=== PATIENT | male | born 1970 | race Caucasian/White ===

== ENCOUNTER 2020-06-26 21:59 | Emergency (ER) | payer OTHER ==
[~2020-06-26] VITALS: Ht 172.7 cm; Wt 73.9 kg
--- NOTE | 2020-06-26 22:05 | NUR ---
NICOLE 89 FROM HOME FOR POSSIBLE METH USE. PT CONFUSED AND UNABLE TO PROVIDE ANY INFO ON TRIAGE. RESPONSIVE TO HIS NAME. CONSTANTLY TALKING TO SELF. PLACED IN ER BED #12. ATTACHED TO THE MONITOR. WARM BLANKET PROVIDED FOR COMFORT. WILL CONTINUE TO MONITOR THE PATIENT.
[2020-06-26] MEDS ORDERED: HALOPERIDOL LACTATE INJ 5 MG/ML VIAL ONE (22:19)
[2020-06-26] MEDS ORDERED: diphenhydrAMINE HCL 50 MG/ML VIAL ONE (22:19)
[2020-06-26] MEDS ORDERED: LORAZEPAM INJ 2 MG/ML VIAL ONE (22:27)
[2020-06-26] MEDS ORDERED: diphenhydrAMINE HCL 50 MG/ML VIAL IV ONE (22:30)
[2020-06-26] MEDS ORDERED: HALOPERIDOL LACTATE INJ 5 MG/ML VIAL IM ONE (22:30)
[2020-06-26] MEDS ORDERED: IV NS 0.9% 1,000 ML BAG IV ONE (22:30)
[2020-06-26] MEDS ORDERED: LORAZEPAM INJ 2 MG/ML VIAL IVP ONE (22:30)
[2020-06-26] MEDS ORDERED: HALOPERIDOL LACTATE INJ 5 MG/ML VIAL IVP ONE (22:30)
[2020-06-26] MEDS ORDERED: diphenhydrAMINE HCL 50 MG/ML VIAL IM ONE (22:30)
[2020-06-26 22:35] LABS: BASOPHILS # (AUTO) 0.1 /CMM (0.0-0.2); BASOPHILS % (AUTO) 0.4 % (0.0-2.0); EOSINOPHILS % (AUTO) 0.1 % (0.0-6.0); HEMATOCRIT 50 % (39-51); HEMOGLOBIN 17.6 g/dL (13.5-17.5); LYMPHOCYTES # (AUTO) 2.1 /CMM (0.8-4.8); LYMPHOCYTES % (AUTO) 14.3 % (20.0-44.0); MEAN CORPUSCULAR HGB CONC 35 g/dl (31.0-36.0); MEAN CORPUSCULAR VOLUME 94 fL (80-96); MONOCYTES # (AUTO) 1.2 /CMM (0.1-1.30); MONOCYTES % (AUTO) 7.7 % (2.0-12.0); NEUTROPHILS # (AUTO) 11.7 /CMM (1.8-8.9); NEUTROPHILS % (AUTO) 77.5 % (43.0-81.0); PLATELET COUNT (AUTO) 243 /CMM (150-450); RED BLOOD CELL COUNT(AUTO) 5.33 MIL/uL (4.5-6.0)
--- NOTE | 2020-06-26 22:39 | NUR ---
SISTER, CURTIS: [phone]
[2020-06-26 22:45] LABS: CALCIUM, SERUM 10.3 mg/dL (8.5-10.1); CARBON DIOXIDE 16 mmol/L (21-32); CHLORIDE 102 mmol/L (98-107); CREATININE 1.6 mg/dL (0.6-1.3); GLUCOSE 128 mg/dL (74-106); POTASSIUM 3.3 mmol/L (3.5-5.1); SODIUM SERUM 139 mmol/L (136-145); UREA NITROGEN, BLOOD 21 mg/dL (7-18)
--- NOTE | 2020-06-26 22:49 | NUR ---
URINE COLLECTED AND SENT TO LAB
[2020-06-26 22:51] LABS: BILIRUBIN,URINE Negative (NEGATIVE); COLOR,URINE YELLOW (YELLOW); LEUKOCYTE ESTERASE ,URINE Negative (NEGATIVE); NITRITE, URINE Negative (NEGATIVE); PROTEIN,URINE 100 mg/dl (NEGATIVE); UGLUCOSE Negative (NEGATIVE)
[2020-06-26 22:55] LABS: ALANINE AMINOTRANSFERASE 33 U/L (12-78); ALBUMIN 4.4 g/dL (3.4-5.0); ALCOHOL, BLOOD < 3 mg/dL (0-0); ALKALINE PHOSPHATASE 101 U/L (46-116); ASPARTATE AMINOTRANSFERASE 38 U/L (15-37); BILIRUBIN,DIRECT 0.3 mg/dL (0.0-0.2); BILIRUBIN,TOTAL 1.6 mg/dL (0.2-1.0); TOTAL PROTEIN, SERUM 7.8 g/dL (6.4-8.2)
[2020-06-26 22:57] LABS: ACETAMINOPHEN 0 ug/ml (10-30)
[2020-06-26 23:13] LABS: RBC,URINE 21-50 /HPF (0-2); WBC,URINE 0-2 /HPF (0-3)
[2020-06-26 23:14] LABS: BACTERIA,URINE None seen /HPF (None Seen); MUCUS,URINE Few /LPF (None Seen); SQUAMOUS EPITHELIAL CELL,UR Few /HPF (None Seen); URINE AMORPHOUS URATE Few /HPF (None Seen)
[2020-06-26 23:42] LABS: THYROID STIMULATING HORMONE 1.405 uIU/mL (0.358-3.74)
[2020-06-27] MEDS ORDERED: IV LR 1000 ML 1,000 ML IV ONE ×2 (01:30→03:00)
[2020-06-27 02:38] LABS: CREATINE KINASE, TOTAL 1667 U/L (39-308)
[2020-06-27] MEDS ORDERED: Magnesium 1GM/D5W 100ML PREMIX 200 ML IV ONE (03:01)
[2020-06-27] MEDS: Magnesium 1GM/D5W 100ML PREMIX 100 ML IV SCH ×2 (03:18→04:34)
[2020-06-27 05:05] LABS: CALCIUM, SERUM 8.2 mg/dL (8.5-10.1); CARBON DIOXIDE 26 mmol/L (21-32); CHLORIDE 108 mmol/L (98-107); GLUCOSE 112 mg/dL (74-106); POTASSIUM 3.8 mmol/L (3.5-5.1); SODIUM SERUM 139 mmol/L (136-145); UREA NITROGEN, BLOOD 17 mg/dL (7-18)
--- NOTE | 2020-06-27 07:05 | NUR ---
PT AMBULATORY, AWALE, ALERT AND OX4.PO CHALLENGE TOLERATED WELL. VSS. FEELING WELL AND REPORTED WILLING TO LEAVE. MD MADE AWARE. PT IS MEDICALLY STABLE FOR D/C PER MD. IV removed. Catheter intact and site benign. Pressure and 4x4 applied to site. No bleeding noted. Patient discharged to home in stable condition. Written and verbal after care instructions given. Patient verbalizes understanding of instruction. pt was provided w/ breakfast prior to d/c . tolerated well.
[2020-06-27 07:11] VITALS: BP 129/80
== END 2020-06-27 07:11 | disposition home or self-care (01) ==
LOC: ER 21:59 → EDBD 21:59 → ER 06-27 07:11
DX: R41.0 Disorientation, unspecified (principal); F15.10 Other stimulant abuse, uncomplicated; R00.0 Tachycardia, unspecified
CPT/HCPCS: 36415 ×2; 70450; 71045; 80048 ×2; 80076; 80299; 80307; 80320; 81001; 82010; 82550; 82553; 82962; 83605; 83735; 84443; 84484 ×2; 85025; 93005; 96361 ×2; 96365; 96366; 96372 ×2; 96375; 99285; J1200; J1630; J2060; J3475; J7030; J7120 ×4; G0480